=== PATIENT | female | born 1935 | race Caucasian/White ===

== ENCOUNTER 2017-02-20 11:32 | Inpatient (IN) | payer OTHER, MEDICAID ==
--- NOTE | 2017-02-20 11:55 | CPEKG ---
Heart Rate: 75 RR Interval: 800 P-R Interval: 160 QRSD Interval: 72 QT Interval: 392 QTC Interval: 438 P [place]: 56 QRS [place]: 16 T Wave [place]: 46 EKG Severity - NORMAL ECG - EKG Impression: SINUS RHYTHM Electronically Signed By: Walter Rangel 20-Feb-2017 15:14:51
[2017-02-20] MEDS ORDERED: fentaNYL 100 MCG/2 ML INJ IVP ONE (13:20)
[2017-02-20 13:26] LABS: % IMMATURE GRANULYOCYTES 0.3 % (0.0-1.1); ABSOLUTE IMMATURE GRANULOCYTES 0.02 10^3/uL (0.00-0.10); ADD DIFF? NO; ADD MORPH? NO; ADD SCAN? NO; ATYPICAL LYMPHOCYTE FLAG 10 (0-99); FRAGMENT RBC FLAG 0 (0-99); HEMATOCRIT 39.9 % (38.0-47.0); HEMOGLOBIN 13.8 g/dL (12.6-16.3); LEFT SHIFT FLG 0 (0-99); LIPEMIA HEMOLYSIS FLAG 90 (0-99); MEAN CELL HEMOGLOBIN 29.9 pg (27.9-34.1); MEAN CELL HEMOGLOBIN CONCENTR. 34.6 g/dL (32.4-36.7); MEAN CELL VOLUME 86.4 fL (81.5-99.8); MEAN PLATELET VOLUME 11.7 fL (8.7-11.7); PLATELET CLUMPS FLAG 0 (0-99); PLATELET COUNT 321 10^3/uL (150-400); RED BLOOD CELL COUNT 4.62 10^6/uL (4.18-5.33); RED CELL DISTRIBUTION WIDTH 13.4 % (11.5-15.2)
[2017-02-20 13:30] LABS: PROTIME(PATIENT) 13.1 SEC (12.0-15.0)
[2017-02-20 13:31] LABS: ANION GAP 12 mEq/L (8-16); APTT 25.7 SEC (23.0-38.0); CALCIUM 9.5 mg/dL (8.5-10.4); CARBON DIOXIDE 17 mEq/l (22-31); CHLORIDE 102 mEq/L (97-110); CREATININE 0.8 mg/dL (0.6-1.0); GLOMERULAR FILTRATION RATE > 60; GLUCOSE 130 mg/dL (70-100); POTASSIUM 4.8 mEq/L (3.5-5.2); SODIUM 131 mEq/L (134-144)
--- NOTE | 2017-02-20 13:35 | EDPHY ---
H & P Time Seen by Provider: 02/20/17 12:07 HPI/ROS: HPI Fall, back pain. 81-year-old female by ambulance from her private home. This is in an assisted living facility. She reports that she fell 2 days ago from tripping on something. She called her daughter who is power of sports attorney and in the room with her about a half an hour prior to arrival and complained of lower back and sacral pain. She also tells me that her right ankle is bothering her. She denies loss of consciousness. Her daughter has spoken with her a couple of times since she fell and she did not have any complaints. She was given 100 mcg of IV fentanyl EN route per EMS. She is not on anticoagulants. ROS: Constitutional: No fever, no chills. No weakness. Eyes: No discharge. No changes in vision. ENT: No sore throat. No nasal congestion or rhinorrhea. Respiratory: No cough. No shortness of breath. Cardiac: No chest pain, no palpitations. Gastrointestinal: No abdominal pain, no vomiting, no diarrhea. Genitourinary: No hematuria. No dysuria or increased frequency with urination. Musculoskeletal: As above. No neck pain. Skin: No rashes. Neurological: No headache. No focal weakness or altered sensation. Past medical history: Stroke, hypertension, expressive aphasia chronic of variable degree. Primary care physician is Dr. Rodriguez. Social history: Currently lives alone but has a boyfriend who visits her daily. Lives at the [facility]. Has home health care and other age checking on her weekly. Physical Exam: General Appearance: Alert, no distress. This patient is responding to questions appropriately and in full sentences. This patient appears well- hydrated and well-nourished. Head: Normocephalic atraumatic except for a small left-sided posterior parietal contusion. Face: Facial bones are stable on palpation. Eyes: Pupils equal and round and reactive to light, no pallor or injection. No lid erythema or edema. ENT, Mouth: Mucous membranes moist. Dentition is intact. No malocclusion of the jaw. No tongue lacerations or abrasions. Pharynx is clear. The bilateral nasal canals are clear. No septal hematoma. Respiratory: There are no retractions, lungs are clear to auscultation with good air movement bilaterally. Chest wall is stable to AP and lateral palpation. Cardiovascular: Regular rate and rhythm. No murmur. Gastrointestinal: Abdomen is soft and nontender, no masses, bowel sounds normal. Neurological: Motor sensory function is intact. Cranial nerves are normal. Cerebellar function intact. Skin: Warm and dry, no rashes. No lacerations, abrasions or contusions. Area. No ulcerations. Musculoskeletal: Neck is supple and nontender. The trachea is midline. No midline cervical, thoracic, lumbar tenderness on palpation. Tenderness on palpation over the mid to lower sacral and coccyx No flank tenderness on palpation. Tenderness on palpation with faint ecchymosis anterior right distal tib-fib area and some tenderness on palpation over the lateral malleolus of the right ankle. Extremities are symmetrical, full range of motion. All joints in the bilateral upper and bilateral lower extremities range without pain or impingement. No tenderness on palpation of the long bones in the bilateral upper and bilateral lower extremities. Psychiatric: No agitation. No depression. Database: EKG: EKG time is 11:48 a.m.; EKG shows a narrow complex normal sinus rhythm with a ventricular rate of 75. The [place], QRS, QT intervals are within normal limits. There are no ST-T wave changes indicative of ischemic or injury pattern. No evidence of right heart strain. Interpreted by me. Imaging: Chest x-ray AP portable; the cardiac mediastinal silhouette is unremarkable. No evidence of infiltrate or pneumothorax. No acute cardiopulmonary disease process noted. No bony abnormality noted. Interpreted by me. Pelvis x-ray; negative for acute fracture, subluxation, dislocation. Interpreted by me. Lumbar sacral coccyx x-ray; negative for acute fracture, subluxation, dislocation. Interpreted by me. Left ankle tib-fib x-ray series; negative for fracture, subluxation, dislocation. Interpreted by me. CT head without contrast: Atrophy, no acute pathology. Results were discussed with staff radiologist Dr. Low Stallworth. Procedures: Emergency department course: IV placed. She was placed on a groundwater monitoring technician. After my evaluation she was given an additional 50 mcg of IV fentanyl for pain control. Her daughter is present in the room with her. She is [id number]. Prior to the her arrival she did not want any tests done. She also arises the above workup. She tells me also that the patient has an appointment to see her primary care physician, Dr. Rodriguez, at 10:45 a.m. tomorrow morning. 2:45 p.m., patient re-evaluated. Results of diagnostic workup discussed with the patient and daughter. After discussion with the daughter, it was determined the patient is not safe to go home. Nor is going home with the daughter an adequate situation secondary to fall risk. We will admit this patient to the hospitalist service for further evaluation and likely placement to a higher level of care. 2:55 p.m., spoke with hospitalist, Dr. Kwok, case discussed with her in detail. She accepts this patient for admission. 3:05 p.m., spoke with on-call trauma surgeon Dr. Zheng Olguin. He will consult on this patient regarding any further trauma management. A CT abdomen and pelvis, trauma protocol has been ordered. Dr. Olguin will follow up on the results of this study. Patient was admitted in stable condition to the hospitalist service. Differential Diagnosis: The differential diagnosis on this patient includes but is not limited to ankle fracture, coccyx fracture, hip fracture, traumatic brain injury. This represents a partial list of diagnoses considered. These considerations are based on history, physical exam, past history, reassessment and diagnostic testing. Smoking Status: Never smoked Constitutional: Initial Vital Signs Temperature (C) 36.9 C 02/20/17 11:46 Heart Rate 79 02/20/17 11:46 Respiratory Rate 18 02/20/17 11:46 Blood Pressure 169/83 H 02/20/17 11:46 O2 Sat (%) 99 02/20/17 11:46 O2 Delivery Mode Room Air Allergies/Adverse Reactions: Penicillins Allergy (Verified 10/09/14 10:38) Home Medications: Medication Instructions Recorded Lisinopril [Zestril 40 mg (*)] 40 mg PO DAILY 08/19/14 Naproxen Sodium [Aleve 220 MG (*)] 220 mg PO BID PRN 08/19/14 metFORMIN HCL [Glucophage 500 mg 500 mg PO BIDMEAL 08/19/14 (*)] Fluconazole [Diflucan (RX)] 150 mg PO ONCE #1 tab 10/09/14 HYDROCODONE BIT/ACETAMINOPHEN 10/09/14 Ibuprofen 10/09/14 Medical Decision Making - Diagnostics Imaging Results: Imaging Impressions Ankle X-Ray 02/20/17 13:20 Impression: 1. No acute osseous abnormality seen right tibia and fibula as well as right ankle. 2. Vascular calcifications evident in the soft tissues. Chest X-Ray 02/20/17 13:20 Impression: 1. No active cardiopulmonary disease seen. No significant change since prior study. Head CT 02/20/17 13:20 Impression: Senescent features and old postischemic features, as above-detailed , unchanged from 08/17/2016. If there is further clinical concern regarding the patient's symptoms, MR imaging is suggested, if not otherwise contraindicated. Findings were discussed with Walter Rangel MD at 13:48, on 02/20/2017. Lumbar Spine X-Ray 02/20/17 13:20 Impression: 1. No acute osseous abnormality seen involving the lumbar spine as well as the sacrum and coccyx. 2. Spondylolisthesis of L5 on S1 secondary to spondylolysis of the L5 pars interarticularis. Pelvis X-Ray 02/20/17 13:20 Impression: No acute osseous findings. If pain persists and medical condition warrants, consider CT. Findings discussed with Walter Rangel MD, 02/20/2017, at 1438 hours. Sacrum and Coccyx X-Ray 02/20/17 13:20 Impression: 1. No acute osseous abnormality seen involving the lumbar spine as well as the sacrum and coccyx. 2. Spondylolisthesis of L5 on S1 secondary to spondylolysis of the L5 pars interarticularis. Tibia/Fibula X-Ray 02/20/17 13:20 Impression: 1. No acute osseous abnormality seen right tibia and fibula as well as right ankle. 2. Vascular calcifications evident in the soft tissues. - Data Points Laboratory Results: Laboratory Results 02/20/17 11:50 02/20/17 11:50 02/20/17 02/20/17 02/20/17 11:50 11:50 11:50 WBC 6.84 10^3/uL 10^3/uL (3.80-9.50) RBC 4.62 10^6/uL 10^6/uL (4.18-5.33) Hgb 13.8 g/dL g/dL (12.6-16.3) Hct 39.9 % % (38.0-47.0) MCV 86.4 fL fL (81.5-99.8) MCH 29.9 pg pg (27.9-34.1) MCHC 34.6 g/dL g/dL (32.4-36.7) RDW 13.4 % % (11.5-15.2) Plt Count 321 10^3/uL 10^3/uL (150-400) MPV 11.7 fL fL (8.7-11.7) Neut % (Auto) 56.8 % % (39.3-74.2) Lymph % (Auto) 32.9 % % (15.0-45.0) [facility] % (Auto) 7.5 % % (4.5-13.0) Eos % (Auto) 1.9 % % (0.6-7.6) Baso % (Auto) 0.6 % % (0.3-1.7) Nucleat RBC Rel Count 0.0 % % (0.0-0.2) Absolute Neuts (auto) 3.89 10^3/uL 10^3/uL (1.70-6.50) Absolute Lymphs (auto) 2.25 10^3/uL 10^3/uL (1.00-3.00) Absolute Monos (auto) 0.51 10^3/uL 10^3/uL (0.30-0.80) Absolute Eos (auto) 0.13 10^3/uL 10^3/uL (0.03-0.40) Absolute Basos (auto) 0.04 10^3/uL 10^3/uL (0.02-0.10) Absolute Nucleated RBC 0.00 10^3/uL 10^3/uL (0-0.01) Immature Gran % 0.3 % % (0.0-1.1) Immature Gran # 0.02 10^3/uL 10^3/uL (0.00-0.10) PT 13.1 SEC SEC (12.0-15.0) INR 1.00 (0.83-1.16) APTT 25.7 SEC SEC (23.0-38.0) Sodium 131 mEq/L L mEq/L (134-144) Potassium 4.8 mEq/L mEq/L (3.5-5.2) Chloride 102 mEq/L mEq/L (97-110) Carbon Dioxide 17 mEq/l L mEq/l (22-31) Anion Gap 12 mEq/L mEq/L (8-16) BUN 16 mg/dL mg/dL (7-23) Creatinine 0.8 mg/dL mg/dL (0.6-1.0) Estimated GFR > 60 Glucose 130 mg/dL H mg/dL (70-100) Calcium 9.5 mg/dL mg/dL (8.5-10.4) Medications Given: Discontinued Medications Fentanyl (Sublimaze) 50 mcg IVP EDNOW ONE Stop: 02/20/17 13:21 Last Admin: 02/20/17 14:34 Dose: 50 mcg Departure - Departure Disposition: [facility] Inpatient Acute Clinical Impression: Fall at home, Sacral pain, Right ankle pain, assisted placement Referrals: Yanci Rodriguez MD [Primary Care Provider] - As per Instructions
[2017-02-20] MEDS ORDERED: NS 500 ML IV ONE (14:46)
[2017-02-20] MEDS ORDERED: IOPAMIDOL (ISOVUE-300) 100 ML BTL ONE (15:09)
[2017-02-20] MEDS ORDERED: ONDANSETRON DISINTEGRATING 4 MG TAB PO PRN (17:01)
[2017-02-20] MEDS ORDERED: ONDANSETRON 4 MG/2 ML VIAL IVP PRN (17:01)
[2017-02-20] MEDS: LIDOCAINE 5% 1 EA PATCH TD SCH (18:22)
[2017-02-20] MEDS: ACETAMINOPHEN 500 MG TAB PO SCH (18:25)
[2017-02-20] MEDS ORDERED: NS 1,000 ML IV SCH (18:45)
--- NOTE | 2017-02-20 19:17 | GHP ---
[f rep st] HISTORY AND PHYSICAL DATE OF ADMISSION: 02/20/2017 CHIEF COMPLAINT: Fall with possible syncope. HISTORY OF PRESENT ILLNESS: The patient is an 81-year-old female with a history of prior stroke who presents to the emergency department from her independent living facility after a mechanical fall. Further history reveals the patient thinks she may have passed out. She has no prior history of sy ncope. She had no presyncopal symptoms such as dizziness, chest pain, shortness of breath, or heart palpitations. She denies any focal weakness. She does have baseline aphasia due to her prior stro ke, but her daughter believes this is unchanged. In the emergency department she complained of sacral pain and imaging revealed a sacral fracture. S he had extensive imaging without evidence of any other injuries or fractures. The trauma service wa s consulted. The patient was admitted to med/surg for further evaluation. PAST MEDICAL HISTORY: 1. History of CVA. 2. Hypertension. 3. Chronic expressive aphasia. MEDICATIONS: Please see [employer] for complete updated outpatient medication list. ALLERGIES: Penicillin. SOCIAL HISTORY: The patient lives in an independent living facility. Her daughter checks on her da avtar and is present with her at the bedside. She also has home health care. FAMILY HISTORY: Reviewed and noncontributory. REVIEW OF SYSTEMS: A 10-point review of systems was reviewed and is negative except as per history of present illness. OBJECTIVE: VITAL SIGNS: Temperature 36.9, blood pressure 138/65, heart rate 69, respiratory rate 1 8, she is 97% on room air. GENERAL: The patient is awake, alert and oriented, no acute distress. She has baseline expressive aphasia. HEENT: Head is atraumatic, normocephalic. Pupils equal, roun d, react to light. Extraocular muscles are intact. Oropharynx clear. Mucous members are moist. N [place]: Supple. There is no JVD. HEART: Regular rate and rhythm without murmur. LUNGS: Clear to a uscultation bilaterally. ABDOMEN: Soft, nontender with normoactive bowel sounds. EXTREMITIES: Wi thout cyanosis, clubbing, or edema. NEUROLOGIC: Expressive aphasia as above is her baseline. She moves all 4 extremities with no focal weakness, no facial droop. There is no pronator drift. LABORATORY DATA: CBC is completely normal. Basic metabolic panel is remarkable for a sodium of 131 , potassium 4.8, serum bicarb is 17, INR is normal. IMAGING STUDIES: Multiple imaging studies were reviewed including ankle x-ray, chest x-ray, head CT , lumbar spine x-ray, pelvis x-ray, sacrum and coccyx x-ray, tibia and fibula x-ray as well as an ab dominal CT and the last of which is remarkable for a nondisplaced caudal sacral fracture just above the sacrococcygeal junction. No other acute intraabdominal visceral injury is noted. EKG is reviewed and shows normal sinus rhythm without ST-segment or T-wave changes suggestive of acu te ischemia. ASSESSMENT/PLAN: The patient is an 81-year-old female with a history of prior stroke and hypertensi on who presents to the emergency department after a mechanical fall with an unclear history of possi ble syncope. 1. Sacral fracture secondary to mechanical fall. Trauma service has been consulted and will reques t an orthopedic consultation though this is likely nonoperative. She will be admitted for pain vanessa gement and acute physical therapy and occupational therapy. 2. Hyponatremia. I suspect this is likely hypovolemic hyponatremia. We will give gentle normal sa line overnight, check a urine sodium and urine osm for further evaluation. 3. Possible syncope. The patient has given varied stories of her fall though endorsed to me that s he may have passed out. There are no neuro deficits suggestive of an acute stroke. In addition her CT head was negative for an acute process. She will be monitored on telemetry to ensure there are no cardiac arrhythmias provoking syncope. Will also obtain an echocardiogram and carotid artery ult rasound to evaluate for significant stenosis as a source of syncope. 4. Hypertension. The patient will be continued on her lisinopril and HCTZ. 5. Diabetes. She will be continued on her metformin in the setting of normal renal function. 6. Disposition: Patient was admitted to inpatient status as she will need acute pain control as we ll as acute PT/OT in the setting of her sacral fracture and recurrent falls. 7. Deep venous thrombosis prophylaxis. Lovenox. CODE STATUS: I did discuss code status with the patient and her daughter, who notes that she is DNR . /[id number]/MODL
--- NOTE | 2017-02-20 19:37 | GCON ---
[f rep st] CONSULTATION DATE OF CONSULTATION: 02/20/2017 CHIEF COMPLAINT: Fall, found down. HISTORY OF PRESENT ILLNESS: This is an 81-year-old female brought in by ambulance from her private home. She does, per her daughter's report, live home by herself. At any rate, the patient's daughter states really that the patient likely fell Thursday evening and was down for an unknown period of time. The patient does endorse hitting her head at that time but denies any other complaints and really has no knowledge to the remainder of the event. At any rate, her daughter visited her today, found that her mother was clearly acting abnormal, and then she endorsed this event. Since then, she has subsequently been brought to the [facility] Emergency Department where she received a full workup. On my evaluation, the patient has her baseline aphasia but she also received some IV narcotics and really, other than having some low pelvic pain on the posterior aspect, has no complaints but is really amnestic to what is going on and seems to be sort of aloof as to what is happening with the whole situation. The daughter states that the mother currently is not at her baseline , does have aphasia at baseline, but that she is clearly not acting as she typically does. The patient endorses nonradiating achy pain in her low posterior sacrum, currently 6/10 in intensity as she had just received some IV narcotics. She has no other complaints. She denies fevers or chills and, otherwise, really has no complaints. PAST MEDICAL HISTORY: Stroke with residual aphasia, hypertension. PAST SURGICAL HISTORY: Denies. SOCIAL HISTORY: Lives alone. Has a boyfriend who visits her daily. Has some caretakers who are in and out of the house throughout the week. The daughter usually sees her at least once a week as well. FAMILY HISTORY: Noncontributory. MEDICATIONS: Please see EMR for full med-rec REVIEW OF SYSTEMS: A full 10-point review was performed and, unless explicitly stated above, is otherwise negative. PHYSICAL EXAMINATION: VITAL SIGNS: Temperature 36.9, heart rate 69, blood pressure 138/65, and she is 97% on room air. GENERAL: She is aphasic, redirectable but fairly amnestic to the event. HEENT: Eyes: Pupils equal, active, round and reactive to light and accommodation. Her extraocular movements are intact. Ears, nose, mouth and throat: Moist mucosa. No masses. Dentition is poor. LUNGS: Clear to auscultation bilaterally. CV: She has a regular rate and rhythm without any murmurs. ABDOMEN: Soft, nondistended, nontender. ORTHOPEDIC: Her pelvis is stable to both AP and lateral compression. She has no ostensible orthopedic injuries. SKIN: Pale, dry. She has signs of chronic venous stasis in her right lower extremity. NEUROLOGIC: Nonfocal. Cranial nerves appear to be intact. PSYCH: She is oriented to place and person. Unclear of the events leading to here. MUSCULOSKELETAL: Grossly normal throughout. LABORATORY DATA: White count 6, hemoglobin 14, hematocrit 39. Chemistries show low sodium at 131 and elevated glucose at 130. IMAGING: All of these images were personally reviewed by me include a head CT, plain films of her chest, ankle, lumbar spine, pelvis, sacrum, tib-fib and an abdominal CT, all showed no acute findings other than a new lower sacral fracture adjacent to the sacrococcygeal ligament. ASSESSMENT AND PLAN: An 81-year-old female with the above past medical history , found down with what appears to be an isolated sacral fracture. At this point in time, the patient will be admitted to the medical service for pain control and to workup her other medical comorbidities including a syncopal workup. I feel that the imaging she has obtained is appropriate and no further imaging is needed at this time. I do feel that the patient probably is not appropriate to return back to her home in an independent living situation given this situation. From a trauma standpoint, I see only an isolated sacral fracture. I have subsequently spoken with Dr. Shah from orthopedics who will evaluate the patient. The trauma service will continue to follow with you. /[id number]/MODL MTDD
[2017-02-20] MEDS ORDERED: hydrALAZINE 10 MG TAB PO PRN (19:46)
[2017-02-20] MEDS ORDERED: PATCH REMOVAL 1 EA PATCH TD SCH (21:00)
--- NOTE | 2017-02-20 23:27 | GCON ---
[f rep st] CONSULTATION ER CONSULTATION DATE OF CONSULTATION: 02/20/2017 CHIEF COMPLAINT: Sacral fracture. HISTORY OF PRESENT ILLNESS: This is an 81-year-old female, brought from her house to the [facility]. She tripped 2 days ago. Her daughter had asked that she be taken to the hospital a s she said her right ankle is hurting her, and she complained of low back and sacral pain. She was brought to the emergency room with these complaints. Workup was done and a CT exam revealed a nondi splaced sacral fracture, and I was asked to see her. PAST MEDICAL HISTORY: Stroke, hypertension, expressive aphasia. Says she lives alone. PAST SURGICAL HISTORY: Reviewed and noncontributory. ALLERGIES: Penicillins. MEDICATIONS: Please see medication list. FAMILY HISTORY: Reviewed and noncontributory. REVIEW OF SYSTEMS: It is a difficult form but is otherwise negative. PHYSICAL EXAMINATION: GENERAL: She is alert and oriented. She has difficulty responding in full s entences, however. HEAD: Atraumatic, normocephalic. Her face is atraumatic. EYES: Equal and reac tive. MOUTH: Shows moist mucous membranes. RESPIRATORY: Lungs are clear. Shows symmetric chest rise. CARDIOVASCULAR: Regular rate and rhythm. Her pulses are normal. NEUROLOGICAL: She is inta ct. Good motor and sensation. SKIN: Warm and dry. MUSCULOSKELETAL: Neck is supple. Her upper e xtremities show good motion without abnormality. She is tender over her sacrum and coccyx. She is also somewhat tender at the right ankle. Actually, she has good range of motion and strength. IMAGING DATA: Her CT scan showed a nondisplaced low sacral fracture at the coccygeal sacral junctio n. Her left ankle and tibial x-rays were personally reviewed, and I did not see any fracture that i s displaced or obvious. ASSESSMENT: Sacral fracture. PLAN: I discussed with her the treatment options, as well as her team. I would allow her to weight bear as tolerated with the fracture as it is below the SI joint and is not weightbearing. She may require a foam donut for sitting and padding around this. This should heal well with nonoperative t reatment. I would have her do physical therapy for mobility, and she will likely need a placement. We will see her back in follow-up appointment in 6 weeks to make sure she is having progressive hea ling of her sacral fracture which are supposed to do well. Will see her sooner in the hospital if s he has any problems or difficulties or other concerns. /[id number]/MODL
[2017-02-21] MEDS: ACETAMINOPHEN 500 MG TAB PO SCH ×2 (00:08→09:17)
[2017-02-21] MEDS: traMADol 50 MG TAB PO PRN ×2 (00:09→09:11)
[2017-02-21 05:12] LABS: ANION GAP 7 mEq/L (8-16); CALCIUM 8.8 mg/dL (8.5-10.4); CARBON DIOXIDE 23 mEq/l (22-31); CHLORIDE 101 mEq/L (97-110); CREATININE 0.8 mg/dL (0.6-1.0); GLOMERULAR FILTRATION RATE > 60; GLUCOSE 119 mg/dL (70-100); POTASSIUM 4.2 mEq/L (3.5-5.2); SODIUM 131 mEq/L (134-144)
--- NOTE | 2017-02-21 08:00 | TRAUMAPN ---
Assessment/Plan: 81 year old with syncope who fell two days prior to admission and sustained a non operative sacral fracture. It is below the SI joint and she can be WBAT. Dr. Shah has evaluated her and will see her in 6 weeks as an outpatient. WBAT , PT, may sit on cushion for comfort. Carotid duplex negative for stenosis. Patient reports that her cousin is picking her up to go home. No additional injuries found on tertiary survey. Trauma will sign off, please contact with questions, concerns or new findings Subjective: ready to go home, pain at tailbone Objective: Vital Signs Temp Pulse Resp BP Pulse Ox 36.5 C 73 12 148/73 H 99 02/21/17 04:47 02/21/17 04:47 02/21/17 04:47 02/21/17 04:47 02/21/17 04:47 Laboratory Results 02/21/17 04:15 02/20/17 02/21/17 02/22/17 05:59 05:59 05:59 Intake Total 1212 Output Total 200 Balance 1012 PT 13.1 SEC (12.0-15.0) 02/20/17 11:50 INR 1.00 (0.83-1.16) 02/20/17 11:50 Physical Exam - Physical Exam General Appearance: alert, no apparent distress, thin EENT: PERRL/EOMI, normal ENT inspection, No scleral icterus (R), No scleral icterus (L) Neck: non-tender, full range of motion, supple, normal inspection Respiratory: chest non-tender, lungs clear Cardiac/Chest: regular rate, rhythm Abdomen: normal bowel sounds, non-tender, soft Back: Normal inspection Skin: normal color, warm/dry Extremities: normal range of motion Neuro/Psych: no motor/sensory deficits, speech abnormalities
[2017-02-21] MEDS ORDERED: LISINOPRIL 40 MG TAB PO SCH (09:00)
[2017-02-21] MEDS ORDERED: ENOXAPARIN 40 MG/0.4 ML SYR SC SCH (09:00)
[2017-02-21] MEDS ORDERED: FLUoxetine 10 MG CAP PO SCH (09:00)
[2017-02-21] MEDS ORDERED: HYDROCHLOROTHIAZIDE 12.5 MG CAP PO SCH (09:00)
[2017-02-21] MEDS: LIDOCAINE 5% 1 EA PATCH TD SCH (09:12)
[2017-02-21 12:45] LABS: COLOR PALE YELLOW; LEUKOCYTE ESTERASE,URINE 1+ (NEGATIVE); NITRITE,URINE NEGATIVE (NEGATIVE)
[2017-02-21 12:50] LABS: MUCUS TRACE /lpf (NONE-1+)
--- NOTE | 2017-02-21 14:38 | HOSPPROG ---
Hospitalist Progress Note Assessment/Plan: #Nonoperable sacral fracture: evaluated by ortho. Weight-bearing as tolerated. Donut for sitting, PT #Syncope with fall: appreciate Dr. Tuttle's trauma eval. Cleared -mild pyuria on UA, but no sxs. Culture pending -EKG and troponin negative for ischemia or arrhythmia. No stenosis on carotid U/ S, TTE pending #Acute sacral pain: refusing APAP. Cont PRN Tramadol #Hypovolemic hyponatremia: HCTZ just started 2 months ago. Will stop this med #Accelerated HTN: recently started on HCTZ, replace this with norvasc #Diet: regular #DVT ppx: Lovenox #Disp: DC today with PT Subjective: no pain currently. did well with PT Objective: Vital Signs Temp Pulse Resp BP Pulse Ox 36.4 C 68 19 151/141 H 93 02/21/17 11:45 02/21/17 11:45 02/21/17 11:45 02/21/17 11:45 02/21/17 11:45 Laboratory Results 02/21/17 04:15 02/20/17 02/21/17 02/22/17 05:59 05:59 05:59 Intake Total 1212 Output Total 200 250 Balance 1012 -250 PT 13.1 SEC (12.0-15.0) 02/20/17 11:50 INR 1.00 (0.83-1.16) 02/20/17 11:50 - Physical Exam Constitutional: no apparent distress, chronically ill appearing Eyes: PERRL Ears, Nose, Mouth, Throat: hard of hearing Cardiovascular: regular rate and rhythym, no murmur, rub, or gallop, edema (no edema) Respiratory: no respiratory distress Gastrointestinal: normoactive bowel sounds Genitourinary: no bladder fullness Skin: warm Musculoskeletal: full muscle strength Neurologic: AAOx3, CN II-XII Intact ICD10 Worksheet Patient Problems: Problems Problem Status Onset Fall at home Acute Right ankle pain Acute Sacral pain Acute Syncope Acute
--- NOTE | 2017-02-21 15:15 | PDIAF ---
- Diagnosis Diagnosis: sacral fracture Code Status: Do Not Resuscitate - Medication Management Discharge Medications: Medications to Continue on Transfer FLUoxetine [Prozac 10 MG (*)] 10 mg PO DAILY 02/20/17 [Last Taken Unknown] Lisinopril [Zestril 40 mg (*)] 40 mg PO DAILY 02/20/17 [Last Taken Unknown] metFORMIN HCL [Metformin HCl] 1,000 mg PO BID 02/20/17 [Last Taken Unknown] Lidocaine 5% [Lidoderm 5% Patch (*)] 1 ea TD DAILY #10 patch 02/21/17 [Last Taken Unknown] traMADol [Ultram 50 mg (*)] 25 mg PO Q6HRS PRN #30 tab 02/21/17 [Last Taken Unknown] Discharge Medications: Refer to the Discharge Home Medication list for PRN reason. - Orders Services needed: Home Care, Certified Technical Administrator, Physical Therapy Home Care Face to Face: I certify that this patient was under my care and that I had the required [id number] encounter meeting the encounter requirements on the discharge day. My findings support the fact that the patient is homebound as defined in CMS Chapter 7 Medicare Benefits Manual 30.1.1, The condition of the patient is such that there exists a normal inability to leave home and consequently, leaving home would require a considerable and taxing effort. - Follow Up Care Current Providers and Referrals: Yanci Rodriguez MD [Primary Care Provider] - As per Instructions Geovanny Shah MD [Medical Doctor] - (follow up in 6 weeks from admission for sacral fractures)
--- NOTE | 2017-02-21 16:34 | ECHO ---
[id number] + + [phone] : : [place] [address] : : [phone] + + Adult Echocardiographic Report + -----+ :Name: PETRONA DOVE LStudy Date: 02/21/2017 12:12 PM : : Hospital Admission Number: [id number] Location : 346: :: 1935 Gender: Female Height: 58 in : :Age: 81 yrs Race: WH Weight: 121 lb : :Reason For Study: syncope : : BSA: 1.5 meters2 : :History: syncope : + -----+ MMode/2D Measurements \T\ Calculations IVSd: 0.80 cm RVDd: 2.5 cm FS: 41.1 % Ao root diam: LVPWd: 0.86 cm LVIDd: 4.0 cm EDV(Teich): 2.8 cm LVIDs: 2.4 cm 70.5 ml ESV(Teich): 19.4 ml EF(Teich): 72.5 % LVLd ap4: 7.9 cm SV(MOD-sp4): EDV(MOD-sp4): 47.0 ml 67.0 ml LVLs ap4: 6.5 cm ESV(MOD-sp4): 20.0 ml EF(MOD-sp4): 70.1 % Normal Measurement Values: + + :LVIDd (3.5-5.7cm) IVSd (0.6-1.1cm) LVPWd (0.6-1.1cm) Aortic Root (2.0-3.7cm)Left Atrium (1.5-4.0cm): :LV Vol(d) (76-115ml) LV Vol(s) (29-48ml) Ejec Fraction (50-65%)PV Bert (0.6- 1.2m/s) TV Bert (0.4-1.0m/s) : :MV E Bert (0.8-1.0m/s)MV A Bert (0.3-1.0m/s)LVOT Bert (0.7-1.2m/s) Asc Ao Bert ( 0.9-1.8m/s) : + + Doppler Measurements \T\ Calculations MV E max bert: Ao V2 max: AI max bert: LV V1 max: 78.4 cm/sec 188.7 cm/sec 369.2 cm/sec 120.1 cm/sec MV A max bert: Ao max PG: AI max P.5 mmHgLV V1 max P.1 cm/sec 14.2 mmHg AI dec slope: 5.8 mmHg MV E/A: 0.72 219.4 cm/sec2 MV dec time: AI P1/2t: 492.9 msec 0.26 sec PA V2 max: TR max bert: 92.1 cm/sec 245.7 cm/sec PA max P.4 mmHgTR max P.1 mmHg RAP systole: 10.0 mmHg RVSP(TR): 34.1 mmHg Left Ventricle The left ventricle is normal in size and function. There is normal left ventricular wall thickness. Ejection Fraction = 70%. There is Doppler evidence for diastolic dysfunction. No regional wall motion abnormalities noted. Right Ventricle The right ventricle is normal in size and function. Atria The left atrial size is normal. Right atrial size is normal. A dilated inferior vena cava suggests increased right atrial pressure. The interatrial septum is intact with no evidence for an atrial septal defect. Mitral Valve The mitral valve is normal in structure and function. There is no evidence of mitral valve prolapse. There is no mitral valve stenosis. There is trace mitral regurgitation. Tricuspid Valve The tricuspid valve is normal in structure and function. There is no tricuspid stenosis. There is mild tricuspid regurgitation. Right ventricular systolic pressure is 34mmHg. Aortic Valve The aortic valve is trileaflet. There is moderate aortic valve calcification. There is no aortic stenosis. Mild aortic regurgitation. Pulmonic Valve The pulmonic valve is normal in structure and function. There is no pulmonic valvular stenosis. There is no pulmonic valvular regurgitation. Great Vessels The aortic root is normal size. Pericardium/Pleural Small pericardial effusion. A circumferential pericardial effusion is noted. Conclusion A two-dimensional transthoracic echocardiogram with M-mode and Doppler was performed. The left ventricle is normal in size and function. Ejection Fraction = 70%. There is mild tricuspid regurgitation. Right ventricular systolic pressure is 34mmHg. Small pericardial effusion. There is trace mitral regurgitation. There is Doppler evidence for diastolic dysfunction. Mild aortic regurgitation. Final Reading Physician: Earl Singh electronically signed on 02/21/2017 04:33 PM Ordering Physician: Mitzy Rodriguez Performed By: Zeny Wood
[2017-02-21 17:05] VITALS: BP 157/80; PULSE 69; RESP 22; TEMP 97.9; O2SAT 92
--- NOTE | 2017-02-22 05:55 | GDS ---
[f rep st] DISCHARGE SUMMARY DISCHARGE DIAGNOSES: 1. Nonoperable sacral fracture. 2. Syncope with a fall. 3. Acute sacral pain. 4. Hypovolemia with hyponatremia. 5. Accelerated hypertension. HISTORY OF PRESENT ILLNESS: The patient is an 81-year-old female, with history of hypertension, prior stroke and chronic expressive aphasia who was brought to the emergency room from her independent living facility after a mechanical fall. Further history reveals that she thinks she may have passed out. She denies any prodromal symptoms including dizziness, chest pain, shortness of breath, or heart palpitations. She denies any overt weakness or dysarthria. She does have baseline aphasia due to a prior stroke, in which her daughter believes is unchanged. HOSPITAL COURSE BY PROBLEM: 1. Sacral fracture secondary to a mechanical fall. The patient was evaluated by Dr. Shah with Orthopedics and this is nonoperable. Weightbearing as tolerated. She is to use a donut with sitting. She was evaluated by PT, OT here, who feel it is safe for patient to go home. She will have 20/04 care by her daughter. We will arrange for PT at home. 2. Acute sacral pain, again secondary to this fracture. PRN tramadol. 3. Hypovolemic hyponatremia: Per daughter, patient was recently started on hydrochlorothiazide due to uncontrolled blood pressure. Per my review of prior records, she had a normal sodium before this. I suspect it is probably multifactorial with the hydrochlorothiazide as well as decreased p.o. intake per patient. I will discontinue this and start a low-dose Norvasc. 4. Accelerated hypertension, again, as stated above. Discontinue hydrochlorothiazide in an elderly patient with hyponatremia and the patient can follow up with her PCP to up-titrate Norvasc. 5. Possibly syncopal. It is unclear if she actually did pass out or not. She has no acute deficits suggesting a stroke. A head CT was negative with old post -ischemic features. Carotid ultrasounds did not show any flow-limiting stenosis. No evidence of arrhythmia on EKG and negative for ischemia. Echocardiogram demonstrated mild diastolic dysfunction and aortic regurgitation , but no significant valvular or wall motion abnormalities. DISPOSITION: Patient is stable for discharge. MEDICATIONS: New medications: Norvasc 2.5 mg daily, tramadol 25 mg as needed. FOLLOWUP: 1. Dr. Shah in 6 weeks with Orthopedics. 2. PCP for blood pressure evaluation. /[id number]/MODL MTDD
[2017-02-23] MEDS ORDERED: metFORMIN HCL 500 MG TAB PO SCH (09:00)
== END 2017-02-21 18:17 | disposition home health service (06) | DRG 552 ==
LOC: EDUNIT# → F3N 23:35
PROVIDERS: ADMIT Hospitalist; ATTEND Hospitalist
DX: S32.14XA Type 1 fracture of sacrum, initial encounter for closed fracture (principal); R55 Syncope and collapse; W18.39XA Other fall on same level, initial encounter; Y92.039 Unspecified place in apartment as the place of occurrence of the external cause; Y99.8 Other external cause status; E87.0 Hyperosmolality and hypernatremia; I10 Essential (primary) hypertension; E11.9 Type 2 diabetes mellitus without complications; I69.320 Aphasia following cerebral infarction
CPT/HCPCS: 92523-GN; 96374; 97161-GP; 97165-GO; G8978-GP-CI; G8979-GP-CI; G8987-GO-CI; G8988-GO-CI; G9165-GN-CH; G9166-GN-CH; G9167-GN-CH; J1650; J3010; Q9967

== ENCOUNTER → 2017-10-28 | Outpatient (CLI) | payer OTHER, MEDICAID ==
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
== END ==
PROVIDERS: ATTEND Family Medicine
DX: I69.351 Hemiplegia and hemiparesis following cerebral infarction affecting right dominant side (principal); R26.9 Unspecified abnormalities of gait and mobility
CPT/HCPCS: 97161; G8978; G8979; G8980